=== PATIENT | male | born 1950 | race Caucasian/White ===

== ENCOUNTER 2021-07-05 08:27 | Emergency (ER) | payer MEDICARE, OTHER ==
[~2021-07-05] VITALS: Ht 182.9 cm; Wt 80.9 kg
[~2021-07-05 08:27] MED LIST: ASPI-630 PO; GLYB1.252 PO; HUM100VI5 SQ; LISI5TAB15 PO; METF500T16 PO; OXYC10TA46 PO
[2021-07-05 08:43] VITALS: BP 189/83
--- NOTE | 2021-07-05 09:35 | RAD ---
XR KNEE _3 VIEWS_LT Clinical Indication: Reason: fall, swelling / Spl. Instructions: / History: Comparison: None. Findings: There is acute traumatic transverse fracture of the mid patella. The fracture fragments are slightly distracted anteriorly but not posteriorly. There is a moderate joint effusion. There is prepatellar s oft tissue swelling. There is a 1.7 cm probable medial suprapatellar loose joint body. There is moder ate narrowing of the medial compartment. There are tricompartmental marginal osteophytes. There are a rterial calcifications. The mineralization appears normal. IMPRESSION: Acute traumatic transverse fracture of the patella. Electronically signed by: Garrison Rdz MD (07/05/2021 9:33 AM) [id number]
--- NOTE | 2021-07-05 10:35 | PHYS DOC ---
Past History Past Medical History: Diabetes, High Cholesterol, Hypertension, Other Past Surgical History: Appendectomy, Cholecystectomy, Other Smoking: Cigarettes Alcohol Use: None Drug Use: None General Adult EDM: Chief Complaint: KNEE INJURY HPI: HPI: Patient is a 71-year-old male coming in for left knee pain and swelling. Patient states he fell yesterday and the pain is gradually gotten worse. Is also noted increased swelling and ecchymosis. No other injuries. Has a history of chronic pain in his left knee due to arthritis Review of Systems: Review of Systems: All other systems within normal limits except for as noted in the HPI Current Medications: Current Meds: Current Medications Medications (Trade) Dose Ordered Sig/Calin Start Time Stop Time Status Last Admin Dose Admin Fentanyl Citrate (Fentanyl 2ml Vial) 100 mcg 1X ONCE 07/05/21 10:30 07/05/21 10:31 Allergies: Allergies: Allergies Coded Allergies Type Severity Reaction Last Updated Verified No Known Drug Allergies 01/11/14 No Physical Exam: PE: Constitutional: Well developed, well nourished, no acute distress, non-toxic appearance. [] HENT: Normocephalic, atraumatic, bilateral external ears normal, oropharynx moist, no oral exudates, nose normal. [] Eyes: PERRLA, EOMI, conjunctiva normal, no discharge. [] Neck: Normal range of motion, no tenderness, supple, no stridor. [] Cardiovascular:Heart rate regular rhythm, no murmur [] Lungs & Thorax: Bilateral breath sounds clear to auscultation [] Abdomen: Bowel sounds normal, soft, no tenderness, no masses, no pulsatile masses. [] Skin: Warm, dry, no erythema, no rash. [] Back: No tenderness, no CVA tenderness. [] Extremities: No tenderness, no cyanosis, no clubbing, ROM intact, no edema. [] Neurologic: Alert and oriented X 3, normal motor function, normal sensory function, no focal deficits noted. [] Psychologic: Affect normal, judgement normal, mood normal. [] Current Patient Data: Vital Signs: Vital Signs Date Time Temp Pulse Resp B/P (MAP) Pulse Ox O2 Delivery O2 Flow Rate FiO2 07/05/21 08:43 98.2 76 16 189/83 (118) 99 Room Air EKG: EKG: [] Radiology/Procedures: Radiology/Procedures: [address] [address] IMAGING REPORT Signed PATIENT: EMI CALDERÓN ACCOUNT: [id number] : 1950 LOCATION: ER AGE: 71 SEX: M EXAM STATUS: REG ER ORD. PHYSICIAN: SEA PEREZ MD REASON: fall, swelling PROCEDURE: KNEE LEFT 3V XR KNEE _3 VIEWS_LT Clinical Indication: Reason: fall, swelling / Spl. Instructions: / History: Comparison: None. Findings: There is acute traumatic transverse fracture of the mid patella. The fracture fragments are slightly distracted anteriorly but not posteriorly. There is a moderate joint effusion. There is prepatellar soft tissue swelling. There is a 1.7 cm probable medial suprapatellar loose joint body. There is moderate narrowing of the medial compartment. There are tricompartmental marginal osteophytes. There are arterial calcifications. The mineralization appears normal. IMPRESSION: Acute traumatic transverse fracture of the patella. Electronically signed by: Garrison Rdz MD (07/05/2021 9:33 AM) [id number] DICTATED AND SIGNED BY: GARRISON RDZ MD DATE: 07/05/21928 CC: SEA PEREZ MD; PCP,NO ~MTH0 0 [] Heart Score: C/O Chest Pain: No Risk Factors: Risk Factors: DM, Current or recent (<one month) smoker, HTN, HLP, family history of CAD, obesity. Risk Scores: Score 0 - 3: 2.5% MACE over next 6 weeks - Discharge Home Score 4 - 6: 20.3% MACE over next 6 weeks - Admit for Clinical Observation Score 7 - 10: 72.7% MACE over next 6 weeks - Early Invasive Strategies Course & Med Decision Making: Course & Med Decision Making Discussed with Dr. Tracey who is on-call for orthopedics. Will need to be surgically repaired but ideally after swelling is gone down. Discussed follow- up with patient instructions given to patient for follow-up Nayeli Disclaimer: Nayeli Disclaimer: This electronic medical record was generated, in whole or in part, using a voice recognition dictation system. Departure Departure: Impression: Primary Impression: Left patella fracture Disposition: 01 HOME / SELF CARE / HOMELESS Condition: STABLE Referrals: [facility] Patient Instructions: Patellar Fracture, Adult SEA PEREZ MD Jul 05, 2021 10:35
== END 2021-07-05 11:42 | disposition home or self-care (01) ==
LOC: ER 08:27
DX: S82.002A Unspecified fracture of left patella, initial encounter for closed fracture (principal); E11.9 Type 2 diabetes mellitus without complications; E78.5 Hyperlipidemia, unspecified; I10 Essential (primary) hypertension; F17.210 Nicotine dependence, cigarettes, uncomplicated; Z90.49 Acquired absence of other specified parts of digestive tract; W18.39XA Other fall on same level, initial encounter; Y93.89 Activity, other specified; Y92.89 Other specified places as the place of occurrence of the external cause; Y99.8 Other external cause status
CPT/HCPCS: 29505; 73562; 96372; 99283; J3010